=== PATIENT | female | born 1965 | race Caucasian/White ===

== ENCOUNTER 2017-11-11 05:28 | Inpatient (IN) | payer BC, OTHER ==
[2017-11-08 17:55] VITALS: BMI 23.1
[~2017-11-11] VITALS: Ht 176.5 cm; Wt 72.0 kg
[2017-11-11] VITALS (33 sets, daily range): BP systolic 94–126; BP diastolic 54–89; PULSE 61–84; RESP 8–28; Ht 176.5 cm; Wt 72.0 kg
[~2017-11-11 05:28] MED LIST: ESCI10TA PO
[2017-11-11] MEDS ORDERED: allergy med (05:33)
[2017-11-11] MEDS ORDERED: DEXAMETHASONE 1 MG TAB PO SCH (06:00)
[2017-11-11] MEDS ORDERED: BUPIVACAINE 0.5% (SDV) 30 ML, morphine SULFATE (PF) 8 MG, EPINEPHrine 0.3 MG, KETOROLAC... IRR SCH ×7 (06:00)
[2017-11-11] MEDS ORDERED: CEFAZOLIN 2 GM/50 ML (PMX) 50 ML IVPB SCH (06:00)
[2017-11-11] MEDS ORDERED: TRANEXAMIC ACID 1,000 MG in DEXTROSE 5% 100 ML IVPB SCH (06:00)
[2017-11-11] MEDS ORDERED: GABAPENTIN 300 MG CAP PO SCH (06:00)
[2017-11-11] MEDS ORDERED: traMADol 50 MG TAB PO SCH (06:00)
[2017-11-11] MEDS ORDERED: SOD CHLORIDE 0.9% 100 ML, TRANEXAMIC ACID 3,000 MG IRR SCH ×2 (06:00)
--- NOTE | 2017-11-11 06:31 | RADRPT ---
PROCEDURE: XR Chest. CLINICAL INDICATION: Preop TECHNIQUE: A single AP view of the chest was obtained. COMPARISON: None. FINDINGS: No focal airspace opacification, pleural effusion or pneumothorax is seen. The cardiomediastinal si lhouette is within normal limits for size. The osseous structures are unremarkable. IMPRESSION: Unremarkable chest x-ray. RPTAT: HH .Rach Wan MD, MD Date Time Electronically viewed and signed by .Rach Wan MD, on 11/11/2017 06:30 .G/
--- NOTE | 2017-11-11 06:46 | HPN ---
Date/Time of Note Date/Time of Note DATE: 11/11/17 TIME: 06:46 Interval H&P Admission Note Pt. seen H&P reviewed: No system changes RUPA HAYNES MD Nov 11, 2017 06:46
[2017-11-11] MEDS ORDERED: ROCURONIUM 50 MG INJ ONE (07:01)
[2017-11-11] MEDS ORDERED: NEOSTIGMINE 3 MG/3 ML SYRINGE ONE (07:01)
[2017-11-11] MEDS ORDERED: GLYCOPYRROLATE 0.4 MG INJ ONE (07:01)
[2017-11-11] MEDS ORDERED: CEFAZOLIN 1 GM INJ ONE (07:01)
[2017-11-11] MEDS ORDERED: PROPOFOL 20 ML ONE (07:01)
[2017-11-11] MEDS ORDERED: MIDAZOLAM 1 MG/ML 2 ML INJ ONE (07:02)
[2017-11-11] MEDS ORDERED: DEXAMETHASONE 4 MG/ML 1 ML INJ ONE (07:02)
[2017-11-11] MEDS ORDERED: ONDANSETRON 4 MG INJ ONE (07:02)
[2017-11-11] MEDS ORDERED: FENTAnyl 50 MCG/ML VIAL ONE (07:02)
[2017-11-11] MEDS ORDERED: morphine SULFATE/PF (10 MG/10 ML) INJ ONE (07:03)
[2017-11-11] MEDS ORDERED: CA CHLORIDE 10% 10 ML SYRINGE ONE (07:37)
[2017-11-11] MEDS ORDERED: THROMBIN 5000 UNIT VIAL ONE (07:37)
[2017-11-11] MEDS ORDERED: POLYMYXIN/BACITRACIN 1L IRRIG ONE (07:37)
[2017-11-11] MEDS ORDERED: POLYMYXIN/BACITRACIN 1L IRRIG IRR ONE (07:53)
[2017-11-11] MEDS ORDERED: KETOROLAC 30 MG INJ IV PRN (08:00)
[2017-11-11] MEDS ORDERED: hydrALAzine 20 MG INJ IV PRN (08:00)
[2017-11-11] MEDS ORDERED: morphine 4 MG/ML VIAL IV PRN ×2 (08:00→09:30)
[2017-11-11] MEDS ORDERED: DIPHENHYDRAMINE 50 MG INJ IV PRN ×2 (08:00→09:30)
[2017-11-11] MEDS ORDERED: HYDROmorphONE (0.2 MG/ML) 10ML SYG IV PRN ×3 (08:00)
[2017-11-11] MEDS ORDERED: MEPERIDINE 25 MG INJ IV PRN (08:00)
[2017-11-11] MEDS ORDERED: morphine 2 MG INJ IV PRN ×2 (08:00→09:30)
[2017-11-11] MEDS ORDERED: OXYCODONE/ACETAMINOPHEN (5/325) TAB PO PRN ×3 (08:00→09:30)
[2017-11-11] MEDS ORDERED: MIDAZOLAM 1 MG/ML 2 ML INJ IV PRN (08:00)
[2017-11-11] MEDS ORDERED: LABETALOL HCL 20MG INJ IV PRN (08:00)
[2017-11-11] MEDS ORDERED: ZOLPIDEM 5 MG TAB PO PRN ×2 (08:00→09:30)
[2017-11-11] MEDS ORDERED: FENTAnyl 50 MCG/ML VIAL IV PRN ×3 (08:00)
[2017-11-11] MEDS ORDERED: ALBUTEROL 0.083% (NEB) 2.5 MG/3 ML AMP HHN PRN (08:00)
[2017-11-11] MEDS ORDERED: EPHEDrine SULFATE 50 MG/5 ML SYG IV PRN (08:00)
[2017-11-11] MEDS ORDERED: TRIMETHOBENZAMIDE 100 MG/ML VIAL IM PRN ×2 (08:00)
[2017-11-11] MEDS ORDERED: IPRATROPIUM (NEB) 0.5 MG/2.5 ML AMP HHN PRN (08:00)
[2017-11-11] MEDS ORDERED: NALOXONE (0.4 MG/ML) INJ IV PRN (08:00)
[2017-11-11] MEDS ORDERED: ONDANSETRON 4 MG INJ IV PRN ×3 (08:00→09:30)
--- NOTE | 2017-11-11 09:18 | OPR ---
Date/Time of Note Date/Time of Note DATE: 11/11/17 TIME: : Operative Report Procedure Date: Nov 11, 2017 Preoperative Diagnosis Primary hip arthritis, left Postoperative Diagnosis Primary hip arthritis, left Operation/Procedure Performed Left total hip arthroplasty Surgeon see signature line Job Order Clerk Pranav Doll MD Anesthesia Type: general Estimated Blood Loss: 150 - 200 ml's Transfusion none Specimen None Grafts/Implants none Complications none Pt Condition Post Procedure: stable Disposition: PACU Procedure Description SENIOR APPLICATIONS ARCHITECT SURGEON: Pranav Doll MD was asked to be present at my request as a result of the complexity associated with this procedure including positioning of the extremity, positioning of the instrumentation and protection of the neurovascular structures. In my opinion, the assistance offered by a electrical test technician is insufficient and Dr. Doll should be compensated for his time. PROCEDURE IN DETAIL: Following the administration of general endotracheal anesthesia supplemented with a spinal anesthetic, the patient was placed in the supine position. The bilateral lower extremities were then prepped and draped in the usual sterile fashion. A marking room supervisor radiograph was obtained for preliminary limb length and femoral size as well as acetabular size. A lateral incision was then made exposing the tensor fascia the fascia was incised the tensor was retracted laterally and the vessels were cauterized. The anterior capsule was then identified and prepared. A capsulectomy was then performed and the femoral head was then evaluated. Severe arthritic changes were noted. A femoral head cut was then made in the appropriate degree of version and inclination. The acetabulum was then exposed and a capsulectomy and labrectomy were completed. The central portion was then entered and serially reamed up to the 51 mm size. A Depuy Delano cup which is 52 mm in size with a standard liner was then fit into position with solid fixation. A 30 mm screw was used for additional fixation. Attention was then directed to the femur, the femur was exposed and prepared. The canal was entered and serially reamed up to the size 7. A size 7 Depuy Actos stem was then inserted with solid fixation. A 32 mm, +1.5 femoral head, which was ceramic was then inserted. The leg was taken through full range of motion with no evident instability. In addition, radiographs revealed excellent position with reproduction of the limb lengths within a millimeter. The wound was irrigated thoroughly. The wound was then closed in layers and a Prenio for the final cover. This was watertight. Estimated blood loss was procedure was 200 cc. Postoperative radiographs will be obtained in the recovery room. RUPA HAYNES MD Nov 11, 2017 09:18
--- NOTE | 2017-11-11 09:19 | PDOCDIS ---
Discharge Instructions DIAGNOSIS Discharge Diagnosis Primary hip arthritis CONDITION Patient Condition: Good HOME CARE INSTRUCTIONS: Diet Instructions: Regular ACTIVITY: Activity Restrictions: Slowly Increase Activity Keep Limb Elevated Bathing Restrictions: Shower FOLLOW UP/APPOINTMENTS Follow-up Plan 2 weeks postoperative SCHOOL/WORK RELEASE May return to School/Work with: With Restrictions School/Work Release Comment: No hip extension for 6 weeks RUPA HAYNES MD Nov 11, 2017 09:19
[2017-11-11] MEDS ORDERED: ACETAMINOPHEN 500 MG TAB PO PRN (09:30)
[2017-11-11] MEDS ORDERED: MAGNESIUM HYDROXIDE 30ML CUP PO PRN (09:30)
[2017-11-11] MEDS ORDERED: TRANEXAMIC ACID 1,000 MG in DEXTROSE 5% 100 ML IV ONE (09:30)
[2017-11-11 10:41] LABS: BASOPHILS % 0.5 % (0.0-2.0); EOSINOPHILS % 0.3 % (0.0-7.0); HEMOGLOBIN 11.5 g/dl (12.0-16.0); LYMPHOCYTES # 0.9 10^3/ul (0.8-2.9); LYMPHOCYTES % 12.3 % (15.0-51.0); MEAN CORPUSCULAR HEMOGLOBIN 30.1 pg (29.0-33.0); MEAN CORPUSCULAR HGB CONC 33.8 g/dl (32.0-37.0); MEAN PLATELET VOLUME 9.7 fl (7.4-10.4); MONOCYTE # 0.2 10^3/ul (0.3-0.9); MONOCYTES % 2.4 % (0.0-11.0); NEUTROPHIL # 6.2 10^3/ul (1.6-7.5); NEUTROPHILS % 83.8 % (39.0-77.0); PLATELET COUNT 239 10^3/UL (140-415); RED BLOOD COUNT 3.82 10^6/ul (4.20-5.40); RED CELL DISTRIBUTION WIDTH 12.6 % (11.5-14.5); WHITE BLOOD COUNT 7.4 10^3/ul (4.8-10.8)
[2017-11-11] MEDS: CEFAZOLIN 1 GM/50 ML (PMX) 50 ML IVPB SCH ×2 (10:59→17:57)
[2017-11-11] MEDS: DEXAMETHASONE 2 MG TAB PO SCH ×3 (13:15→23:17)
[2017-11-11] MEDS: LACTATED RINGER'S 1,000 ML IV SCH ×2 (13:22→19:13)
--- NOTE | 2017-11-11 16:51 | RADRPT ---
PROCEDURE: XR Pelvis. CLINICAL INDICATION: Status post left hip replacement. TECHNIQUE: Single AP view of the pelvis. COMPARISON: No prior studies are available for comparison. FINDINGS: Left hip replacement is identified. The prosthetic components are in appropriate position and align ment. The osseous structures are intact. No destructive bony lesions are observed. Right hip join t is unremarkable. Lees catheter is noted of the lower pelvis. Tissue air over the left hip is pro cedural in nature. IMPRESSION: Left hip replacement. Prosthetic components are in appropriate position and alignment. RPTAT: AA .Severino Ryan MD, Date Time Electronically viewed and signed by .Severino Ryan MD, on 11/11/2017 10:38 .P/
--- NOTE | 2017-11-11 16:51 | RADRPT ---
PROCEDURE: X-ray fluoroscopy guidance CLINICAL INDICATION: Left hip arthroplasty TECHNIQUE: Fluoroscopic guidance was utilized for left hip arthroplasty. Number of images obtained : 5. Fluoro time: 24 seconds. COMPARISON: None available FINDINGS: Fluoroscopic guidance was utilized for a left hip arthroplasty. 24 seconds of fluoroscopy time was utilized for the procedure. The procedure was performed by Dr. Alexandra. IMPRESSION: X-ray fluoroscopic guidance utilized for left hip arthroplasty. RPTAT: JJ .Allan Mclain MD, Date Time Electronically viewed and signed by .Allan Mclain MD, on 11/11/2017 10:40 .A/
[2017-11-11] MEDS: KETOROLAC 15 MG INJ IV PRN (18:08)
[2017-11-11] MEDS: GABAPENTIN 300 MG CAP PO SCH (20:30)
[2017-11-11] MEDS: SENNA/DOCUSATE NA (8.6MG/50MG) TAB PO SCH (20:30)
[2017-11-11] MEDS: ESCITALOPRAM 10 MG TAB PO SCH (20:33)
[2017-11-11] MEDS ORDERED: ESCITALOPRAM 10 MG TAB PO SCH (21:00)
[2017-11-12] MEDS: CEFAZOLIN 1 GM/50 ML (PMX) 50 ML IVPB SCH (01:22)
[2017-11-12 02:00] VITALS: BP 91/53; RESP 20
[2017-11-12] MEDS: LACTATED RINGER'S 1,000 ML IV SCH ×2 (05:13→15:13)
[2017-11-12] MEDS: DEXAMETHASONE 2 MG TAB PO SCH (05:30)
--- NOTE | 2017-11-12 06:58 | PN ---
Date/Time of Note Date/Time of Note DATE: 11/12/17 TIME: 06:57 24 hour Interval Summary Patient is awake and alert with no significant issues. Physical Exam Physical examination: She is neurologically intact. Her wound is well covered and dry. There are no signs of DVT. Vital Signs Date Time Temp Pulse Resp B/P Pulse Ox O2 Delivery O2 Flow Rate FiO2 11/12/17 02:00 97.9 69 20 91/53 95 11/11/17 14:45 Room Air 11/11/17 11:11 2.0 Intake and Output 11/11/17 11/11/17 11/12/17 15:00 23:00 07:00 Intake Total 2610 ml 1670 ml 1450 ml Output Total 600 ml 1400 ml 1300 ml Balance 2010 ml 270 ml 150 ml VTE Prophylaxis VTE Prophylaxis Intervention: SCD's Lines/Catheters IV Catheter Type: Saline Lock Lees in Place: No Results Result Diagram: 11/11/17 1026 Results 24hrs Laboratory Tests Test 11/11/17 10:26 11/12/17 04:41 11/12/17 06:56 White Blood Count 7.4 Pending Red Blood Count 3.82 L Pending Hemoglobin 11.5 L Pending Hematocrit 34.0 L Pending Mean Corpuscular Volume 89.0 Pending Mean Corpuscular Hemoglobin 30.1 Pending Mean Corpuscular Hemoglobin Concent 33.8 Pending Red Cell Distribution Width 12.6 Pending Platelet Count 239 Pending Mean Platelet Volume 9.7 Pending Neutrophils % 83.8 H Lymphocytes % 12.3 L Monocytes % 2.4 Eosinophils % 0.3 Basophils % 0.5 Nucleated Red Blood Cells % 0.0 Neutrophils # 6.2 Lymphocytes # 0.9 Monocytes # 0.2 L Eosinophils # 0.0 Basophils # 0.0 Nucleated Red Blood Cells # 0.0 Lab Scanned Report LAB Assessment/Plan Assessment/Plan Assessment: Status post total hip Plan: She will begin physical therapy. Discharged today if she is independently ambulatory. Medications Medications Home Meds Reported Medications [allergy med] No Conflict Check, DAILY 11/11/17 Escitalopram Oxalate* (Lexapro*) 10 Mg Tablet, 10 MG PO DAILY, #30 TAB 11/08/17 RUPA HAYNES MD Nov 12, 2017 06:58
--- NOTE | 2017-11-12 06:58 | DS ---
Date/Time of Note Date/Time of Note DATE: 11/12/17 TIME: 06:58 Discharge Summary Admission/Discharge Info Admit Date/Time Nov 11, 2017 at 05:28 Discharge Date/Time November 12, 2017 following clearance by physical therapy. Discharge Diagnosis Primary hip arthritis Patient Condition: Good Hospital Course Patient was admitted and underwent an uncomplicated procedure. Postop day 1 she was independently ambulatory discharged followed up in 2 weeks Home Meds Reported Medications [allergy med] No Conflict Check, DAILY 11/11/17 Escitalopram Oxalate* (Lexapro*) 10 Mg Tablet, 10 MG PO DAILY, #30 TAB 11/08/17 Follow-up Plan 2 weeks postoperative Primary Care Provider Not On Staff Doctor Pending Labs Laboratory Tests Test 11/11/17 10:26 11/12/17 04:41 11/12/17 06:56 White Blood Count 7.410^3/ul (4.8-10.8) Pending Red Blood Count 3.8210^6/ul (4.20-5.40) Pending Hemoglobin 11.5g/dl (12.0-16.0) Pending Hematocrit 34.0% (37.0-47.0) Pending Mean Corpuscular Volume 89.0fl (82.0-101.0) Pending Mean Corpuscular Hemoglobin 30.1pg (29.0-33.0) Pending Mean Corpuscular Hemoglobin Concent 33.8g/dl (32.0-37.0) Pending Red Cell Distribution Width 12.6% (11.5-14.5) Pending Platelet Count 15305^3/UL (140-415) Pending Mean Platelet Volume 9.7fl (7.4-10.4) Pending Neutrophils % 83.8% (39.0-77.0) Lymphocytes % 12.3% (15.0-51.0) Monocytes % 2.4% (0.0-11.0) Eosinophils % 0.3% (0.0-7.0) Basophils % 0.5% (0.0-2.0) Nucleated Red Blood Cells % 0.0/100WBC (0.0-0.0) Neutrophils # 6.210^3/ul (1.6-7.5) Lymphocytes # 0.910^3/ul (0.8-2.9) Monocytes # 0.210^3/ul (0.3-0.9) Eosinophils # 0.010^3/ul (0.0-0.5) Basophils # 0.010^3/ul (0.0-0.1) Nucleated Red Blood Cells # 0.010^3/ul (0.0-0.0) Lab Scanned Report [id number] RUPA HAYNES MD Nov 12, 2017 06:58
[2017-11-12] MEDS: KETOROLAC 15 MG INJ IV PRN ×2 (06:59→15:02)
[2017-11-12 07:45] LABS: BASOPHILS % 0.1 % (0.0-2.0); HEMATOCRIT 29.1 % (37.0-47.0); HEMOGLOBIN 9.7 g/dl (12.0-16.0); LYMPHOCYTES # 0.9 10^3/ul (0.8-2.9); LYMPHOCYTES % 7.1 % (15.0-51.0); MEAN CORPUSCULAR HEMOGLOBIN 29.8 pg (29.0-33.0); MEAN CORPUSCULAR HGB CONC 33.3 g/dl (32.0-37.0); MEAN CORPUSCULAR VOLUME 89.5 fl (82.0-101.0); MEAN PLATELET VOLUME 10.5 fl (7.4-10.4); MONOCYTE # 1.2 10^3/ul (0.3-0.9); MONOCYTES % 9.7 % (0.0-11.0); NEUTROPHIL # 10.4 10^3/ul (1.6-7.5); NEUTROPHILS % 82.8 % (39.0-77.0); PLATELET COUNT 227 10^3/UL (140-415); RED BLOOD COUNT 3.25 10^6/ul (4.20-5.40); RED CELL DISTRIBUTION WIDTH 12.9 % (11.5-14.5); WHITE BLOOD COUNT 12.6 10^3/ul (4.8-10.8)
[2017-11-12 08:03] VITALS: BP 109/73; RESP 18
[2017-11-12] MEDS ORDERED: ESCITALOPRAM 10 MG TAB PO SCH (09:00)
[2017-11-12] MEDS: ESCITALOPRAM 10 MG TAB PO SCH ×2 (09:00→20:58)
[2017-11-12] MEDS: ASPIRIN 81 MG TAB PO SCH (09:11)
[2017-11-12] MEDS: SENNA/DOCUSATE NA (8.6MG/50MG) TAB PO SCH ×2 (09:11→20:57)
[2017-11-12] MEDS: OXYCODONE/ACETAMINOPHEN (5/325) TAB PO PRN ×4 (10:01→22:09)
[2017-11-12 19:20] VITALS: BP 106/64; RESP 18
[2017-11-12] MEDS: GABAPENTIN 300 MG CAP PO SCH (20:57)
[2017-11-13] MEDS: LACTATED RINGER'S 1,000 ML IV SCH (01:13)
[2017-11-13 02:00] VITALS: BP 115/69; RESP 18
[2017-11-13] MEDS: OXYCODONE/ACETAMINOPHEN (5/325) TAB PO PRN ×3 (02:35→10:52)
[2017-11-13 05:28] LABS: BASOPHILS % 0.3 % (0.0-2.0); EOSINOPHILS # 0.1 10^3/ul (0.0-0.5); HEMATOCRIT 25.4 % (37.0-47.0); HEMOGLOBIN 8.6 g/dl (12.0-16.0); LYMPHOCYTES % 29.4 % (15.0-51.0); MEAN CORPUSCULAR HEMOGLOBIN 29.9 pg (29.0-33.0); MEAN CORPUSCULAR HGB CONC 33.9 g/dl (32.0-37.0); MEAN CORPUSCULAR VOLUME 88.2 fl (82.0-101.0); MEAN PLATELET VOLUME 10.5 fl (7.4-10.4); MONOCYTE # 0.9 10^3/ul (0.3-0.9); NEUTROPHIL # 3.8 10^3/ul (1.6-7.5); PLATELET COUNT 179 10^3/UL (140-415); RED BLOOD COUNT 2.88 10^6/ul (4.20-5.40); RED CELL DISTRIBUTION WIDTH 12.7 % (11.5-14.5); WHITE BLOOD COUNT 6.8 10^3/ul (4.8-10.8)
[2017-11-13 08:04] VITALS: BP 112/74; RESP 16
[2017-11-13] MEDS: ASPIRIN 81 MG TAB PO SCH (08:43)
[2017-11-13] MEDS: SENNA/DOCUSATE NA (8.6MG/50MG) TAB PO SCH (08:43)
[2017-11-13] MEDS: ESCITALOPRAM 10 MG TAB PO SCH (09:00)
[2017-11-13] MEDS: KETOROLAC 15 MG INJ IV PRN (11:48)
--- NOTE | 2017-11-13 16:51 | PN ---
Date/Time of Note Date/Time of Note DATE: 11/13/17 TIME: 16:49 24 hour Interval Summary Seen this morning at 630 am. Comfortable and standing up brushing her teeth. Physical Exam PE: Wound cleand and dry. Minimal swelling with no signs of DVT. Vital Signs Date Time Temp Pulse Resp B/P Pulse Ox O2 Delivery O2 Flow Rate FiO2 11/13/17 08:04 98.0 60 16 112/74 99 11/11/17 14:45 Room Air 11/11/17 11:11 2.0 Intake and Output 11/12/17 11/12/17 11/13/17 15:00 23:00 07:00 Intake Total 800 ml 350 ml Output Total 200 ml 460 ml Balance -200 ml 340 ml 350 ml VTE Prophylaxis VTE Prophylaxis Intervention: SCD's Lines/Catheters IV Catheter Type: Saline Lock Lees in Place: No Results Result Diagram: 11/13/17 0456 Results 24hrs Laboratory Tests Test 11/13/17 04:56 White Blood Count 6.8 # Red Blood Count 2.88 L Hemoglobin 8.6 L Hematocrit 25.4 L Mean Corpuscular Volume 88.2 Mean Corpuscular Hemoglobin 29.9 Mean Corpuscular Hemoglobin Concent 33.9 Red Cell Distribution Width 12.7 Platelet Count 179 # Mean Platelet Volume 10.5 H Neutrophils % 56.0 Lymphocytes % 29.4 Monocytes % 13.0 H Eosinophils % 1.0 Basophils % 0.3 Nucleated Red Blood Cells % 0.0 Neutrophils # 3.8 Lymphocytes # 2.0 Monocytes # 0.9 Eosinophils # 0.1 Basophils # 0.0 Nucleated Red Blood Cells # 0.0 Assessment/Plan Chief Complaint/Hosp Course Patient was admitted and underwent an uncomplicated procedure. Postop day 1 she was independently ambulatory discharged followed up in 2 weeks Problems: Assessment/Plan A/P: Doing well with Dc/ after PT this morning. Follow up in two weeks. Medications Medications Home Meds Reported Medications [allergy med] No Conflict Check, DAILY 11/11/17 Escitalopram Oxalate* (Lexapro*) 10 Mg Tablet, 10 MG PO DAILY, #30 TAB 11/08/17 RUPA HAYNES MD Nov 13, 2017 16:51
--- NOTE | 2017-11-13 18:49 | RADRPT ---
Vent Rate: 60 bpm RR Interval: 0 msec LA Interval: 148 msec QRS Duration: 74 msec QT Interval: 442 msec QTC Interval: 442 msec P-R-T [place]: 76 - 81 - 70 degrees Normal sinus rhythm Normal ECG Electronically Signed By: Carlos Smallwood [id number]
== END 2017-11-13 12:10 | disposition home or self-care (01) | DRG 470 ==
LOC: REC 05:28 → MS1 11:10
PROVIDERS: ADMIT Orthopaedic Surgery; ATTEND Orthopaedic Surgery
PROC: 0SRB04A Replacement of Left Hip Joint with Ceramic on Polyethylene Synthetic Substitute, Uncemented, Open Approach (ICD-10-PCS; principal; 2017-11-11 07:00)
DX: M16.12 Unilateral primary osteoarthritis, left hip (principal); F32.9 Major depressive disorder, single episode, unspecified
CPT/HCPCS: 71010; 72170; 73530; 84703; 85025; 86999; 93005; 97110; 97116; 97163; 97530; C1713; C1776; J0690; J1100; J1885; J2250; J2270; J2274; J2405; J2710; J3010; J7120